=== PATIENT | male | born 2000 | race Two or more races ===

== ENCOUNTER 2024-03-12 16:07 | Emergency (ER) | payer MEDICAID, SELFPAY ==
[2024-03-12 16:07] VITALS: BMI 24.0
[2024-03-12 16:20] VITALS: BP 121/77; PULSE 98; RESP 18; TEMP 37.1; O2SAT 97
--- NOTE | 2024-03-12 16:25 | EDNOTE_ITS ---
Nausea/Vomit./Diarrhea-RME/HPI General Chief complaint: Nausea/Vomiting/Diarrhea Stated complaint: VOMITING x 3 DAYS, TEETH EXTRACTED TUESDAY Time Seen by Provider: 03/12/24 16:15 Arrival date/time: 03/12/24 16:07 23-year-old male reports with complaints of nausea and vomiting after having a dental procedure 3 days ago. Patient states that he received anesthesia for tooth extraction and since then he has been sick to his stomach. Patient states he is unable to keep any food or liquids down. Patient states he is also prescribed antibiotics for the procedure but he is unable to take them because he vomits them as well. He denies any shortness of breath or chest pain tongue swelling abdominal pain fevers chills weakness or fatigue. Patient denies taking any medications for his symptoms Limitations: no limitations Related Data Previous Rx's ?Medication ?Instructions ?Recorded dicyclomine 20 mg tablet 20 mg PO QID PRN abdominal pain 01/09/19 #14 tabs ondansetron 4 mg disintegrating 4 mg PO QDAY PRN nausea and 03/12/24 tablet vomiting 4 days #10 tabs Allergies Allergy/AdvReac Type Severity Reaction Status Date / Time No Known Allergies Allergy Verified 03/12/24 16:09 Review of Systems Constitutional Constitutional: Denies chills, Denies fever(s) and Denies headache(s) ENT Ears, Nose, Mouth, and Throat: Denies dental pain, Denies dizziness, Denies headache(s), Denies neck pain and Denies tongue swelling Cardiovascular Cardiovascular: Denies chest pain, Denies dyspnea and Denies syncope Respiratory Respiratory: Denies cough and Denies dyspnea Gastrointestinal Gastrointestinal: Denies abdominal pain, Reports nausea and Reports vomiting Genitourinary Genitourinary: Denies dysuria, Denies flank pain and Denies hematuria Musculoskeletal Musculoskeletal: Reports myalgias and Denies neck pain Integumentary/Breasts Skin/Breast: Denies erythema, Denies rash and Denies unusual bruising Neurologic Neurologic: Denies convulsions, Denies dizziness, Denies headache(s) and Denies syncope Psychiatric Psychiatric: Denies anxiety and Denies depression Hematologic/Lymphatic Hematologic/Lymphatic: Denies easy bleeding and Denies easy bruising Allergic/Immunologic Allergic/Immunologic: Denies tongue swelling Past Medical History Past Medical History CARDIAC: Negative Cardiac Disorders or Congestive Heart Failure RESPIRATORY: Negative Chronic Obstructive Pulmonary Disease (COPD) or Asthma GENITOURINARY: Negative Renal Disease ENDOCRINE: Negative Diabetes Mellitus Type 1 or Diabetes Mellitus Type 2 HEMATOLOGIC: Negative Sickle Cell Disease Social History SMOKING STATUS: Current some day smoker ED Exam General Limitations: Present no limitations General appearance: Present alert and in no apparent distress Head Head exam: Present atraumatic Eye Eye exam: Present normal appearance, PERRL and EOMI ENT ENT exam: Present normal oropharynx, mucous membranes moist and other (mild swelling of left cheek but no erythema or purulent d/c from gums) Neck Neck exam: Present normal inspection, full ROM and trachea midline Chest Chest inspection: Present normal inspection and symmetric chest wall rise Respiratory Respiratory exam: Present normal lung sounds bilaterally Cardiovascular Cardiovascular exam: Present regular rate, normal rhythm and normal heart sounds Abdominal Exam Abdominal exam: Present soft and normal bowel sounds; Absent tenderness, guarding, rebound, mass or bruit Extremities Exam Extremities exam: Present normal inspection and full ROM Back Exam Back exam: Present normal inspection and full ROM Neurological Exam Neurological exam: Present alert, oriented X3 and CN II-XII intact Psychiatric Psychiatric exam: Present normal affect and normal mood Skin Skin exam: Present warm, dry, intact and normal color Course Course Course Narrative: 22-year-old male reports with complaints of nausea vomiting after receiving ane sthesia for tooth procedure. Patient received Zofran which he reports helped he was able to tolerate water 30 minutes post taking the Zofran. Patient is stable nontoxic-appearing with stable vital signs will be discharged home with a short prescription of Zofran for the nausea so that he can continue to take the antibiotics prescribed by the dentist. He is advised to hydrate well follow-up with dentist as planned return to the emergency department if symptoms should worsen. Patient verbalized understanding Quality Measures none Orders Category Date Time Status Ondansetron Odt [Zofran Odt] Med 03/12/24 16:25 Discontinued 4 mg PO X1 ONE Vital Signs Vital signs: Vital Signs Temperature 98.8 F 03/12/24 16:20 Pulse Rate 98 03/12/24 16:20 Respiratory Rate 18 03/12/24 16:20 Blood Pressure 121/77 03/12/24 16:20 Pulse Oximetry (%) 97 03/12/24 16:20 Oxygen Delivery Method Room Air 03/12/24 16:20 Nausea/Vomiting/Diarrhea Patient data External records reviewed:: None Clinical information provided by:: patient Social determinants that could affect healthcare access:: none Patient has the following chronic illnesses:: none How is presenting disease/condition affected by chronic disease/condition?: no chronic disease Evaluation data The following diagnostics were reviewed and interpreted by me:: other (specify) Lab and/or radiology exams considered but not ordered:: none Interpretation Summary: n/a Medications / Prescriptions Medications / Prescriptions considered but not ordered:: n/a Medication administrations:: Medication Administration History Discontinued Medications Ondansetron HCl (Ondansetron Odt 4 Mg Tabrap) 4 mg PO X1 ONE; Protocol Stop: 03/12/24 16:26 Last Admin: 03/12/24 16:36 Dose: 4 mg Documented By: OA as above Consultations Consultation(s) initiated? (list below): No Diagnosis Nausea Differential Diagnosis: gastroenteritis, drug-induced nausea and vomiting and other Most likely diagnosis given after review of the tests above:: Reaction to anesthesia Admission Indicated Admission indicated?: not indicated Admission Request Was there a request for admission?: No Disposition Plan Disposition Plan: Discharge Discharge Attestation Discharge Attestation: The patient and all family members were given an opportunity to ask questions and understood the discharge instructions. Discharge instructions specifically effects, indications for sooner follow up or return to the emergency department, and the expected course of current diagnosis. Patient condition: Stable Discharge Plan Plan Patient Disposition: HOME (Self Care) Prescriptions/Referrals Prescriptions/Med Rec: New ondansetron 4 mg tablet,disintegrating 4 mg PO QDAY PRN (Reason: nausea and vomiting) 4 Days Qty: 10 0RF No Action dicyclomine 20 mg tablet 20 mg PO QID PRN (Reason: abdominal pain) Qty: 14 0RF Problem List Clinical Impression: Adverse effect of anesthesia, Vomiting Patient/Caregiver Discharge Instructions Discharge Activity: activity as tolerated Education Materials: Nausea Vomit Control, ED Vomiting (Adult) Additional Instructions: Take medication as directed drink fluids slowly and follow-up if symptoms does not improve Print Language: Martiniquais Stand Alone Forms: [employer] Award Info., Patient Portal Info Letter
[2024-03-12] MEDS: ONDANSETRON ODT 4 MG TABRAP PO (16:36)
== END 2024-03-12 18:31 | disposition home or self-care (01) ==
LOC: SERX 17:59
PROVIDERS: Emergency Provider Emergency Medicine; PCP Family Medicine
DX: R11.2 Nausea with vomiting, unspecified (principal); T41.45XA Adverse effect of unspecified anesthetic, initial encounter
CPT/HCPCS: 99282; Q0162